=== PATIENT | male | born 1970 | race Caucasian/White ===

== ENCOUNTER 2022-11-04 08:57 | Day surgery (SDC) | payer OTHER, SELFPAY ==
[2022-07-25 11:32] VITALS: BMI 31.0
--- NOTE | 2022-09-09 13:04 | PC.NURSE ---
SPOKE TO PT. STATES HE NEEDS TO RESCHEDULE DUE TO SUPER BOWL BEING THE DAY BEFORE. PT GIVEN DR SEGOVIA OFFICE NUMBER.
[2022-10-17 14:46] VITALS: BMI 29.9
[2022-11-04 09:15] VITALS: BP 162/88; PULSE 85; RESP 20; TEMP 36.5; O2SAT 98
[2022-11-04] MEDS: LACTATED RINGERS 1,000 ML 150 ML IV CONT (09:25)
--- NOTE | 2022-11-04 09:37 | WPDANESEPPF ---
Anes - Initial Pre Proc Eval Procedure: Operation Date: 11/04/22 10:30 Proposed Procedures p Screening Colonoscopy - Hector Arrington MD Date/Time: 11/04/22 09:37 Surgeon: Hector Arrington MD Pre Op Diagnosis: Neoplasm Screening Patient Data Age: 52 Gender: M Height: 1.88 m Weight: 106.2 kg Last Vital Signs Temp 36.5 C 11/04/22 09:15 Pulse 85 11/04/22 09:15 Resp 20 11/04/22 09:15 BP 162/88 H 11/04/22 09:15 Pulse Ox 98 11/04/22 09:15 O2 Del Method Room Air 11/04/22 09:15 Allergies Allergy/AdvReac Type Severity Reaction Status Date / Time No Known Allergies Allergy Verified 11/04/22 09:27 Home Medications Medication Instructions Recorded Confirmed Type atorvastatin 10 mg tablet 10 mg PO QHS #90 tabs 07/22/22 11/04/22 Rx Patient hx anesthesia problems: none Family hx anesthesia problems: none Results Review: All pre-operative results and documents have been reviewed as part of the pre-operative evaluation. [facility] Past Medical History Medical History Allergies Surgical History Surgical History History of nasal surgery Family History Family History Sibling Hypertension Father Diabetes mellitus Hypertension Mother Hypertension Sibling Hypertension Alcoholism Other Depression Anxiety Thyroid disorder Heart disease Grandparent Cancer Cerebrovascular accident Other Family history of gastrointestinal disorder Social History Social History Smoking status: Never smoker Alcohol intake: current Substance use: never Substance use type: does not use Lack of Transportation: No Lack of Food: Never True Current Housing: I Have Housing Concerned About Future Housing: No Difficulty Paying Gas/Electric Bills: No Difficulty Paying for Meds: No Currently Unemployed: No Education: Associate Degree Difficulty w/ Childcare or Family Care: No Living arrangements: with family Spiritual care concerns: No Anes - Eval Final PreProcedure Day of Procedure 11/04/22 09:37 Patient weight: overweight Heart: regular rate and rhythm Lungs: clear to auscultation Airway: Mallampati scale class II Neurological: alert and oriented Last oral intake: >/= 8 hours ASA classification: II Emergent: no Anesthetic plan: proceed Anesthesia type and monitoring: general GIVS and standard monitoring Results Review: All pre-operative results and documents have been reviewed as part of the pre-operative evaluation. Informed Consent: The patient's anesthetic plan and its attendant risks and benefits were discussed with the patient/family/POA. Questions were solicited and answers provided to the satisfaction of the patient/family/POA.
--- NOTE | 2022-11-04 09:51 | PM.HPGS ---
History of Present Illness History of Present Illness Consent: Risks, benefits, and alternatives have been discussed and questions answered. Patient agrees to proceed with procedure. Chief complaint: Neoplasm Screening Narrative: Ethan Kelsey is a 52 year old male here for first screening colonoscopy Review of Systems Constitutional: Constitutional: Denies headache(s) and Denies weakness Eyes: Eyes: Denies blurry vision ENT: Reports Normal hearing present, Denies headache(s) and Denies neck pain Cardiovascular: Cardiovascular: Denies chest pain and Denies dyspnea Respiratory: Respiratory: Denies dyspnea Gastrointestinal: Gastrointestinal: Reports no additional gastrointestinal complaints Genitourinary: Genitourinary: Denies dysuria Musculoskeletal: Musculoskeletal: Denies neck pain Integumentary/Breasts: Skin/Breast: Denies dry skin Neurologic: Reports Normal hearing present, Denies headache(s) and Denies weakness Psychiatric: Psychiatric: Denies anxiety Endocrine: Endocrine: Denies change in body appearance Hematologic/Lymphatic: Hematologic/Lymphatic: Denies easy bleeding Allergic/Immunologic: Allergic/Immunologic: Denies urticaria PMFSH Past Medical History Medical History Allergies Surgical History Surgical History History of nasal surgery Family History Family History Sibling Hypertension Father Diabetes mellitus Hypertension Mother Hypertension Sibling Hypertension Alcoholism Other Depression Anxiety Thyroid disorder Heart disease Grandparent Cancer Cerebrovascular accident Other Family history of gastrointestinal disorder Social History Social History Smoking status: Never smoker Alcohol intake: current Substance use: never Substance use type: does not use Lack of Transportation: No Lack of Food: Never True Current Housing: I Have Housing Concerned About Future Housing: No Difficulty Paying Gas/Electric Bills: No Difficulty Paying for Meds: No Currently Unemployed: No Education: Associate Degree Difficulty w/ Childcare or Family Care: No Living arrangements: with family Spiritual care concerns: No Meds Home Medications and Allergies Home Medications Medication Instructions Recorded Confirmed Type atorvastatin 10 mg tablet 10 mg PO QHS #90 tabs 07/22/22 11/04/22 Rx Allergies Allergy/AdvReac Type Severity Reaction Status Date / Time No Known Allergies Allergy Verified 03/27/23 09:27 Vital Signs Vital Signs - 24 hr 11/04/22 09:15 Temperature 97.7 F Pulse Rate 85 Respiratory Rate 20 Blood Pressure 162/88 H Pulse Oximetry 98 Oxygen Delivery Room Air Exam Const: General: comfortable and no acute distress HENMT: Face/Nose/Sinus: Normal nares present Eyes: General: appearance normal, both eyes and all related structures Neck: Neck: no JVD Resp: Auscultation: clear to auscultation bilaterally Cardio: Rate: regular rate Rhythm: regular rhythm GI: Inspection: non-distended GI Palp: Yes Soft to palpation Skin: General skin exam: normal color Neuro: General: gait normal Speech: normal speech Extrem: General: normal to inspection Psych: Mental Status: mental status grossly normal Assessment and Plan Assessment and plan (1) Screening for colon cancer: Code(s): Z12.11 - Encounter for screening for malignant neoplasm of colon Status: Acute Assessment and Plan: colonoscopy
[2022-11-04 10:10] VITALS: BP 122/69; PULSE 79; RESP 16; O2SAT 98
[2022-11-04 10:20] VITALS: BP 122/72; PULSE 80; RESP 16; O2SAT 100
--- NOTE | 2022-11-04 10:23 | SUR.PHASEII ---
PT AWAKE AND ALERT. DENIES PAIN OR NAUSEA. DRINKING WATER. TALKATIVE.
[2022-11-04 10:30] VITALS: BP 114/74; PULSE 78; RESP 16; O2SAT 99
--- NOTE | 2022-11-04 10:30 | WPDANESPN ---
Anes - Prog Note Post-Op Date/Time: 11/04/22 10:30 Cardiovascular status: normal Respiratory status: normal Airway patency: baseline Mental status: baseline Post-Op hydration status: normal Vital Signs: Last Vital Signs Temp 36.5 C 11/04/22 09:15 Pulse 80 11/04/22 10:20 Resp 16 11/04/22 10:20 BP 122/72 11/04/22 10:20 Pulse Ox 100 11/04/22 10:20 O2 Del Method Room Air 11/04/22 10:20 Pain Score (VAS): 0 I/O: Intake & Output 11/03/22 11/04/22 11/04/22 23:59 07:59 15:59 Intake Total 300 Balance 300 Patient Feedback: Patient satisfied with anesthetic care.
== END 2022-11-04 10:39 | disposition home or self-care (01) ==
PROVIDERS: PCP Internal Medicine; Visit Provider Internal Medicine Gastroenterology
PROC: 0DJD8ZZ Inspection of Lower Intestinal Tract, Via Natural or Artificial Opening Endoscopic (ICD-10-PCS; CPT 45378; principal; 2022-11-04 10:30)
DX: Z12.11 Encounter for screening for malignant neoplasm of colon (principal)
CPT/HCPCS: 45385

== ENCOUNTER 2022-11-04 09:00 | Outpatient (NON) | payer OTHER, SELFPAY | END 2022-11-04 09:01 | disposition home or self-care (01) | PROVIDERS: PCP Internal Medicine; Visit Provider Internal Medicine Gastroenterology | DX: Z12.11 Encounter for screening for malignant neoplasm of colon (principal) | CPT/HCPCS: 88305 ==

== ENCOUNTER 2023-07-28 14:13 | Outpatient (RCR) | payer OTHER, SELFPAY ==
--- NOTE | 2023-07-28 15:36 | PTOPEVAL1 ---
Assessment and note entered by Leslye Berry, PT, DPT Evaluation Information Assessment Status Evaluation Diagnosis L shoulder pain Onset 2 years Subjective Information Pt states 2 years ago he was cleaning and felt a pop in his shoulder and it has not been the same since. Pt states he is having a little bit of shoulder pain but it does not really bother him much. He states he can still swing a golf club and do whatever he wants to do he just has a little bit of pain. Pt likes to golf. Reported Pain Level Pain Score 0: Self Report Assessment PT Clinical Summary Dylan presents to therapy today for his initial evaluation with a diagnosis of L shoulder pain. Today he demonstrates minor strength and ROM deficits, with pain at end ROM, when compared to his R shoulder. He demonstrates forward and rounded shoulders as well. Today he was instructed in a HEP and educated on proper sitting posture. He plans to work on his HEP for the next month and will follow up if needed. Plan of Care PT Services Indicated Yes Treatment Frequency and follow up in 1 month Duration These treatments will address the objective and functional deficits as defined above. The patient will be advanced safely and appropriately in order for the patient to progress towards his/her prior level of function. Additional exercises will be introduced and as well as a comprehensive home exercise program upon discharge, if needed, ?to ensure carryover of functional gains achieved in the clinic. This treatment plan has been reviewed and agreement upon by the patient.
--- NOTE | 2023-10-13 14:47 | PTOPDC ---
Assessment and note entered by Leslye Berry, PT, DPT Evaluation Information Assessment Status Discharge - Pt Not Present Diagnosis L shoulder pain Onset 2 years Subjective Information Pt was evaluated on 07/28/24 and at that time it was decided he would work on his HEP and follow up in a month if needed. Have not heard from pt since. Assessment PT Clinical Summary Pt was evaluated on 07/28/24 and did not complete any subsequent treatments. He will be discharged at this time. If he needs additional therapy at a later date he will need a new order.
== END 2023-10-13 15:36 | disposition home or self-care (01) ==
LOC: ANHGOSHPT 14:13
PROVIDERS: PCP Internal Medicine; Visit Provider Nurse Practitioner
DX: M25.512 Pain in left shoulder (principal)
CPT/HCPCS: 97110; 97161

== ENCOUNTER 2024-11-15 07:39 | Emergency (ER) | payer OTHER, SELFPAY ==
[2024-11-15] VITALS (8 sets, daily range): BP systolic 125–172; BP diastolic 65–83; PULSE 70–92; RESP 14–19; TEMP 36.6; O2SAT 98–100
--- NOTE | ~2024-11-15 | XR_ITS ---
XR chest 2V Ordering provider: Kike Ramos MD History: 54 years Male with . DIZZINESS/LIGHT HEADED . Comparison: None. FINDINGS: MEDIASTINUM: The cardiac silhouette is not enlarged. LUNGS: No infiltrates, effusions or pneumothorax. OTHER: No free air under the diaphragm. Degenerative changes of the spine. IMPRESSION: No acute cardiopulmonary pathology. Reviewed, dictated and finalized at location A.
[2024-11-15 07:49] LABS: Glucose Point of Care 103 mg/dl (65-105)
--- NOTE | 2024-11-15 07:57 | ECG_ITS ---
Test Date: 2024-11-15 08:49:48 Measurements Intervals [place] Rate: 70 P: 71 AL: 192 QRS: 72 QRSD: 88 T: 67 QT: 361 QTc: 391 Interpretive Statements SINUS RHYTHM BORDERLINE T WAVE ABNORMALITY- HIGH LATERAL LEADS BASELINE ARTIFACT- I, II, AVR, AVL, AVF, V3-V6 BORDERLINE ECG No previous ECG available for comparison Electronically Signed On 11-15-2024 09:11:17 CDT by Yadiel Victoria D.O.
[2024-11-15] MEDS: MECLIZINE HCL 25 MG TABLET PO (08:03)
[2024-11-15] MEDS: SODIUM CHLORIDE 0.9% IV 1,000 ML 999 ML IV CONT (08:08)
[2024-11-15 08:24] LABS: Alanine Aminotransferase 19 U/L (6-50); Albumin Level 4.6 g/dL (3.5-5.1); Alkaline Phosphatase 57 U/L (38-126); Anion Gap 8 mmol/L (4-12); Aspartate Amino Transferase 21 U/L (17-59); Bilirubin,Total 0.6 mg/dL (0.2-1.3); Blood Urea Nitrogen 14 mg/dL (9-20); Calcium 9.1 mg/dL (8.4-10.2); Carbon Dioxide 26 mmol/L (22-30); Chloride 103 mmol/L (98-107); Estimated CRCL calculation 83 ml/min; Estimated Glomerular Filt Rate > 60; Glucose 116 mg/dL (65-110); Potassium 4.1 mmol/L (3.4-5.0); Sodium 137 mmol/L (137-145)
[2024-11-15 08:33] LABS: Basophils Absolute Auto 0.1 K/mm3 (0.0-0.1); Basophils Percent Auto 0.8 % (0.2-1.2); Eosinophils Absolute Auto 0.1 K/mm3 (0-0.3); Eosinophils Percent Auto 1.2 % (0-4.4); Hematocrit 44.7 % (42.0-52.0); Hemoglobin 14.6 g/dL (14.0-18.0); Immature Granulocyte Absolute 0.01 K/mm3 (0.00-0.031); Immature Granulocyte Percent A 0.2 % (0-0.5); Lymphocytes Absolute Auto 1.48 K/mm3 (0.9-3.2); Lymphocytes Percent Auto 22.7 % (18.3-44.2); Mean Corpuscular HGB Conc 32.7 g/dl (32-36); Mean Corpuscular Hemoglobin 30.3 pg (26-34); Mean Corpuscular Volume 92.7 fl (80-100); Mean Platelet Volume 9.3 fl (7.4-10.4); Monocytes Absolute Auto 0.4 K/mm3 (0.1-0.6); Monocytes Percent Auto 6.3 % (2.6-8.5); Neutrophils Absolute Auto 4.5 K/mm3 (1.3-6.7); Neutrophils Percent Auto 68.8 % (45.5-73.1); Platelet Count Result 240 k/mm3 (150-375); Red Blood Count 4.82 M/mm3 (4.6-6.20); Red Cell Distribution Width 13.2 % (11.5-14.5); White Blood Count 6.5 K/mm3 (4.5-10.0)
--- NOTE | 2024-11-15 10:51 | ED_ITS ---
HPI - General Adult General Chief complaint: Syncope Stated complaint: near syncope, lightheaded Time Seen by Provider: 11/15/24 07:43 History of Present Illness HPI narrative: Patient is a 54-year-old male who presents ER [place]. Persistent dizziness with shakiness. [place] flushed. Thought he might pass out. Has had trouble hearing out of his right ear. No chest pain. No extremity weakness or numbness. Related Data Home Medications ?Medication ?Instructions ?Recorded ?Confirmed ?Last Taken ?Type No Home Medications 07/23/24 07/23/24 Unknown History Allergies Allergy/AdvReac Type Severity Reaction Status Date / Time No Known Allergies Allergy Verified 07/23/24 08:09 Review of Systems 2 Review of Systems: All systems reviewed & are unremarkable except as noted in HPI and below Constitutional: Constitutional: Reports no additional constitutional complaints Cardiovascular: Cardiovascular: Reports no additional cardiovascular complaints Respiratory: Respiratory: Reports no additional respiratory complaints Gastrointestinal: Gastrointestinal: Reports no additional gastrointestinal complaints Musculoskeletal: Musculoskeletal: Reports no additional musculoskeletal complaints Neurologic: Reports system reviewed and no additional complaints, except as documented PMFSH Past Medical History Medical History Allergies Surgical History Surgical History History of nasal surgery Family History Family History (Updated 07/23/24 @ 08:11 by Kim aLzaro CMA) Sibling Hypertension Father Diabetes mellitus Hypertension Mother Hypertension Cerebrovascular accident Diabetes mellitus Sibling Hypertension Alcoholism Other Depression Anxiety Thyroid disorder Heart disease Grandparent Cancer Cerebrovascular accident Other Family history of gastrointestinal disorder Social History Social History Smoking status: Never smoker Alcohol intake: current Substance use: never Substance use type: does not use Lack of Transportation: No Lack of Food: Never True Current Housing: I Have Housing Concerned About Future Housing: No Difficulty Paying Gas/Electric Bills: No Difficulty Paying for Meds: No Currently Unemployed: No Education: Associate Degree Difficulty w/ Childcare or Family Care: No Living arrangements: with family Spiritual care concerns: No Exam 2 Narrative: GENERAL: Well-appearing, well-nourished, and in no acute distress. HEAD: Normocephalic, atraumatic. EYES: PERRL and EOMI. ENT: Mucous membranes moist. Large volume cerumen impacting the right ear canal. Normal left ear canal and TM. After cerumen removal left TM is normal. NECK: Supple. CHEST: Clear to auscultation. No respiratory distress. HEART: Regular rate and rhythm. Normal peripheral pulses. EXTREMITIES: Normal range of motion. No edema. SKIN: Warm, dry, no rash. NEURO: No focal deficits. No upper lower extremity drift. Alert and oriented x3. PSYCH: Normal mood and affect. Course Course Emergency Course: Symptoms resolved with meclizine and cerumen removal. Appropriate for discharge home. Vital Signs Vital signs: Vital Signs Temperature 97.8 F 11/15/24 07:45 Pulse Rate 90 11/15/24 07:45 Respiratory Rate 18 11/15/24 07:45 Blood Pressure 172/83 H 11/15/24 07:45 Pulse Oximetry 100 11/15/24 07:45 Oxygen Delivery Room Air 11/15/24 07:45 Temperature 97.8 F 11/15/24 10:05 Pulse Rate 76 11/15/24 10:30 Respiratory Rate 16 11/15/24 10:30 Blood Pressure 133/76 11/15/24 10:30 Pulse Oximetry 100 11/15/24 10:30 Oxygen Delivery Room Air 11/15/24 07:45 Procedures Ear Wax Removal Right Ear: Cerumenolytic Used: 5-10% Sodium Bicarb solution Results: Re-examined: cerumen removed completely TM Examination: TM(s) intact, normal appearance Ear Canal Exam: atraumatic Patient Tolerated Procedure: well Complications: no problems Technique: ear canal irrigated and ear canal curetted Medical Decision Making Vital Signs Vital Signs: Vital Signs Temperature 97.8 F 11/15/24 07:45 Pulse Rate 90 11/15/24 07:45 Respiratory Rate 18 11/15/24 07:45 Blood Pressure 172/83 H 11/15/24 07:45 Pulse Oximetry 100 11/15/24 07:45 Oxygen Delivery Room Air 11/15/24 07:45 Temperature 97.8 F 11/15/24 10:05 Pulse Rate 76 11/15/24 10:30 Respiratory Rate 16 11/15/24 10:30 Blood Pressure 133/76 11/15/24 10:30 Pulse Oximetry 100 11/15/24 10:30 Oxygen Delivery Room Air 11/15/24 07:45 Lab Data 11/15/24 08:07 11/15/24 08:07 Labs: Lab Results 11/15/24 11/15/24 Range/Units 07:47 08:07 WBC 6.5 (4.5-10.0) K/mm3 RBC 4.82 (4.6-6.20) M/mm3 Hgb 14.6 (14.0-18.0) g/dL Hct 44.7 (42.0-52.0) % MCV 92.7 (80-100) fl MCH 30.3 (26-34) pg MCHC 32.7 (32-36) g/dl RDW 13.2 (11.5-14.5) % Plt Count 240 (150-375) k/mm3 MPV 9.3 (7.4-10.4) fl Immature Gran % (Auto) 0.2 (0-0.5) % Neut % (Auto) 68.8 (45.5-73.1) % Lymph % (Auto) 22.7 (18.3-44.2) % [place] % (Auto) 6.3 (2.6-8.5) % Eos % (Auto) 1.2 (0-4.4) % Baso % (Auto) 0.8 (0.2-1.2) % Lymph # (Auto) 1.48 (0.9-3.2) K/mm3 [place] # (Auto) 0.4 (0.1-0.6) K/mm3 Eos # (Auto) 0.1 (0-0.3) K/mm3 Baso # (Auto) 0.1 (0.0-0.1) K/mm3 Abs Immat Gran (auto) 0.01 (0.00-0.031) K/mm3 Absolute Neuts (auto) 4.5 (1.3-6.7) K/mm3 Absolute Nucleated RBC 0.000 (0.0-0.012) K/mm3 Nucleated RBC % 0.0 (0.0-0.2) % Sodium 137 (137-145) mmol/L Potassium 4.1 (3.4-5.0) mmol/L Chloride 103 (98-107) mmol/L Carbon Dioxide 26 (22-30) mmol/L Anion Gap 8 (4-12) mmol/L BUN 14 (9-20) mg/dL Creatinine 1.03 (0.7-1.3) mg/dL Estim Creat Clear Calc 83 ml/min Estimated GFR > 60 (59 - ) Glucose 116 H (65-110) mg/dL POC Capillary Glucose 103 (65-105) mg/dl Calcium 9.1 (8.4-10.2) mg/dL Total Bilirubin 0.6 (0.2-1.3) mg/dL AST 21 (17-59) U/L ALT 19 (6-50) U/L Alkaline Phosphatase 57 (38-126) U/L Total Protein 8.0 (6.3-8.2) g/dL Albumin 4.6 (3.5-5.1) g/dL Imaging Data Radiologist's impression: ITS Impressions Chest X-Ray 11/15/24 08:19 IMPRESSION: No acute cardiopulmonary pathology. Discharge Plan Discharge Clinical Impression: Vertigo, Cerumen impaction Patient Disposition: Home Condition: Stable Instructions: Carbamide Peroxide (Into the ear), Vertigo (ED) Additional Instructions: Return ER for worsening dizziness, you cannot keep down food water, you lose consciousness, or you have additional concerns. Patient Language: [place] Prescriptions: No Action No Home Medications simvastatin 10 mg tablet 10 mg PO DAILY Qty: 90 3RF Follow-up/Referrals: Tano Wu DO [Primary Care Provider] - 1 Week
--- NOTE | 2024-11-15 11:06 | PC.NURSE ---
Ears irrigated per ERP request. Large piece of cerumen removed from right ear
== END 2024-11-15 11:18 | disposition home or self-care (01) ==
PROVIDERS: Emergency Provider Emergency Medicine; PCP Internal Medicine
DX: R42 Dizziness and giddiness (principal); H61.21 Impacted cerumen, right ear
CPT/HCPCS: 36415; 69210; 71046; 80053; 82948; 85025; 93005; 99283; A9270; J7030

== ENCOUNTER 2025-03-10 10:33 | Outpatient (CLI) | payer OTHER, SELFPAY ==
--- NOTE | 2025-03-21 15:48 | WPDHOLTEREM ---
Holter/Event Monitor Holter/Event Monitor Date of procedure: 03/10/25 Holter/Event Procedure: 3-7 Day Holter Monitor Indications: Palpitations Conclusion: 1. 3 days holter monitor on 03/10/25. 2. Underlying rhythm is sinus rhythm. HR range 48-140 bpm; average HR 75 bpm. HR at 48 bpm was on 03/12/25 at 6:07 am. 3. There are rare premature supraventricular complexes and rare supraventricular triplets. No supraventricular tachycardia. 4. No premature ventricular complexes. No ventricular tachycardia. 5. No significant pauses greater than 3 seconds. 6. Patient reports 10 episodes of symptoms of irregular beats, lightheadedness, fluttering which demonstrate sinus rhythm, HR range 66-109 bpm with 1 episode with PAC.
== END 2025-03-10 10:34 | disposition home or self-care (01) ==
PROVIDERS: PCP Internal Medicine; Visit Provider Nurse Practitioner
DX: I49.1 Atrial premature depolarization (principal); R00.2 Palpitations
CPT/HCPCS: 93242